=== PATIENT | female | born 1970 | race Caucasian/White ===

== ENCOUNTER → 2017-12-09 10:06 | Outpatient (CLI) | payer OTHER, SELFPAY ==
[2017-12-09 11:48] LABS: T4 Free Direct 0.93 ng/dL (0.76-1.46); Thyroid Stim Hormone (TSH) 2.07 uIU/mL (0.358-3.74)
[2017-12-10 11:13] LABS: Thyroid Peroxidase AB 13 IU/mL (0-34)
== END ==
PROVIDERS: Family Provider Family Medicine; PCP Family Medicine; Visit Provider Family Medicine
DX: Z00.01 Encounter for general adult medical examination with abnormal findings (principal); E04.9 Nontoxic goiter, unspecified
CPT/HCPCS: 36415; 84439; 84443; 86376

== ENCOUNTER → 2018-01-30 14:34 | Outpatient (CLI) | payer OTHER, SELFPAY ==
[2018-01-30 16:00] LABS: Absolute Lymphocyte Count 1.41 X10^3/ul (0.83-4.51); Absolute Neutrophil Count 2.1 X10^3/uL (2.0-7.7); Basophil# 0.03 X10^3/uL; Basophil% 0.8 % (0-1); Eosinophil# 0.12 X10^3/uL; Hematocrit 40.9 % (37-47); Hemoglobin 13.8 g/dl (12.0-15.0); Lymphocyte # 1.41 X10^3/ul (4.0); Lymphocyte % 35.5 % (19-41); Mean Corp Hgb Conc 33.7 g/gl (32-36); Mean Corpuscular Hgb 31.1 pg (27.0-32.0); Mean Corpuscular Volume 92.1 fL (81-99); Mean Platelet Vol. 8.9 fl (6.2-12.0); Monocyte# 0.32 X10^3/uL; Monocyte% 8.1 % (0-10); Neutrophil # 2.09 X10^3/uL (2.7-7.7); Neutrophil % 52.6 % (47-70); Platelet Count 352 K/mm3 (150-450); RBC Distribution Width CV 11.9 % (11.6-14.6); RBC Distribution Width SD 40.3 fl (35.1-43.9); Red Blood Count 4.44 M/mm3 (4.2-5.4)
[2018-01-30 16:03] LABS: POSITIVE COUNT NO; POSITIVE DIFFERENTIAL NO; POSITIVE MORPHOLOGY NO
[2018-01-30 18:06] LABS: ALB/GLOB Ratio 1.3 RATIO (0.9-2.4); AST(SGOT) 22 U/L (15-37); Alanine Aminotransfer ALT/SGPT 27 U/L (13-56); Albumin, Serum 4.3 g/dL (3.2-5.0); Alkaline Phosphatase 88 U/L (45-117); Anion Gap 9 (5-15); BUN 12 mg/dL (7-18); BUN/Creat Ratio 13.5 RATIO (10-20); Calcium,Total 8.6 mg/dL (8.5-10.1); Chloride 107 mmol/L (98-107); Cholesterol 183 mg/dL (200); Creatinine, Serum 0.89 mg/dL (0.55-1.02); EST Glomerular Filtration Rate 73 mL/min (>60); Est Glom Filt Rate - Afr Amer 88 mL/min (>60); Globulin 3.3 g/dL (2.2-4.2); Glucose 90 mg/dL (74-106); High Density Lipoprotein 68 mg/dL; Protein, Total 7.6 g/dL (6.4-8.2); Sodium Level 142 mmol/L (136-145); Triglycerides 163 mg/dL; Very Low Density Lipoprotein 33 mg/dL (5-40)
== END ==
PROVIDERS: Family Provider Family Medicine; PCP Family Medicine; Visit Provider Family Medicine
DX: Z01.818 Encounter for other preprocedural examination (principal); E78.1 Pure hyperglyceridemia
CPT/HCPCS: 36415; 80053; 80061; 85025

== ENCOUNTER 2018-02-20 05:54 | Day surgery (SDC) | payer OTHER, SELFPAY ==
[2018-02-20 06:19] VITALS: BP 133/89; PULSE 77; RESP 16; TEMP 37.3; O2SAT 98; BMI 31.0
--- NOTE | 2018-02-20 07:07 | EKG12_ITS ---
Test Reason : PREOP Blood Pressure : / mmHG Vent. Rate : 077 BPM Atrial Rate : 077 BPM P-R Int : 156 ms QRS Dur : 078 ms QT Int : 374 ms P-R-T Axes : 021 041 030 degrees QTc Int : 423 ms Normal sinus rhythm Confirmed by ATUL MORTENSEN, CATALINA ([id number]), photographic editor MEETA NIELSEN ([id number]) on 03/06/2018 11:39:50 AM Referred By: Chip Saini Confirmed By:CATALINA POLLARD MD
--- NOTE | 2018-02-20 07:24 | RAD_ITS ---
STUDY: X-RAY - RIGHT CALCANEUS REASON FOR EXAM: Female, 47 years old. Plantar fasciotomy. TECHNIQUE: 2 coned-down view(s) of the calcaneus were obtained intraoperatively. COMPARISON: None. FINDINGS: There is evidence of resection of the plantar spur. RAD/Calcaneus min 2 Views IMPRESSION: Resection of the plantar spur. Electronically Signed: Laron Loomis MD at 15:30 EDT Tel [phone], Service support ,
--- NOTE | 2018-02-20 07:24 | RAD_ITS ---
STUDY: X-RAY - LEFT CALCANEUS REASON FOR EXAM: Female, 47 years old. Plantar fasciotomy and plantar spur removal. TECHNIQUE: AP and lateral view(s) of the calcaneus were obtained. COMPARISON: Comparison is made with prior examination earlier in the day. FINDINGS: Status post resection of the plantar spur. RAD/Calcaneus min 2 Views IMPRESSION: Status post resection of the plantar spur. Electronically Signed: Laron Loomis MD at 15:39 EDT Tel [phone], Service support ,
--- NOTE | 2018-02-20 07:30 | TESH_PTH ---
PATIENT: RAMON RENE [place] [facility] [place][id number] AGE/SX: 47/F ROOM: RE02/20/[address]: Dr. Chip Saini DPM : 1970 BED: DIS: 02/20/2018 SPEC #: [id number] RECD: 02/20/18 10:25 STATUS: BLANCA AGUAYO #: [id number] ISAIAH: 02/20/18 07:[address]: Chip Saini DEPT: SURGICAL PATHOLOGY RECD BY: Mac Gregg ENTERED: 02/20/18 14:08 SP TYPE: TENDON OTHR DR: Dr. Tesfaye Kaiser, DO Tissues: Tendon and tendon sheath, NOS Procedures: Surgery Specimen Level III HEADER OPERATION: Resection heel spur/plantar fasciotomy, bilateral feet, peroneal PRE-OP DIAGNOSIS: Plantar fascia syndrome, calcaneal spur bilateral TISSUE SUBMITTED: Right peroneal tendon debridement tissue MICROSCOPIC DIAGNOSIS Right peroneal tendon, excision: Tendon with reactive and reparative change. AM:jeffery 02/28/18 MICROSCOPIC DESCRIPTION Slides are reviewed. GROSS DESCRIPTION Received in fixative is one container labeled with the patient's name and designated right peroneal tendon. The specimen consists of multiple irregular fragments of white-jasmine to reddish-jasmine soft tissue that in aggregate measure 6 x 4 x 2 cm. Two of the fragments resemble a tendon and are submitted in their entirety in cassette 1. Cutter Operator sections of the remainder of the tissue are submitted in cassette 2. / AM:jeffery 02/20/18 TC:5 CPT: 96169
[2018-02-20] MEDS: Cefazolin 2 GM in 0.9% Normal Saline 100 ML IV (07:31)
[2018-02-20] MEDS: Bupivacaine Mpf 0.5% 30 ML VIAL (09:17)
--- NOTE | 2018-02-20 09:28 | PCM.OPRPT ---
Report of Operation Date of Procedure: 02/20/18 - Surgeon: Chip Saini DPM Pre-Operative Diagnosis: Plantar fasciitis w/ infracalcaneal spur bilateral; peroneus brevis tendon tear right Post-Operative Diagnosis: Same Surgery/Procedure Performed:: Plantar fasciotomy with resection on infracalcaneal spur bilateral, peroneal brevis tendon debridement and repair, right Description of Surgical Findings:: Infracalcaneal spur bilateral, peroneal brevis tendinopathy w/ tear right laboratory veterinarian: Yes - Dr. Germain Type of Anesthesia:: General Specimen's removed: Debrided right peroneal brevis tendon sent to pathology Estimated Blood Loss (mL): 10mL Description of Procedure: Indications: This is a 47 year old female with chronic right and left plantar fasciitis and infracalcaneal heel pain. She also has a painful longitudinal tear of the right peroneus brevis tendon w/ tendinopathy. These have been treated with extensive conservative/nonsurgical management (orthotic therapy, rest, activity modifications, AFO bracing, anti-inflammatories, EPAT), but she continues to have pain and symptoms. This was confirmed with MRI. She continues to have pain which was really bothering her and affecting her daily activities. She has elected to undergo plantar fasciotomy with resection of the infracalcaneal spur bilateral, as well as debridement and repair of peroneus brevis. This was discussed with her in great detail, reviewed the possible benefits vs risks and potential complications. Typical post op recovery was reviewed with her. The goals and the expectations were reviewed with her in detail. The consent forms were reviewed with her in detail, and she freely signed them. No guarantees were given. All of her questions were answered. Operative Procedure: The patient was brought back into the operating room and was placed on the operating room table in the supine position. She was carefully secured to the operating room table with a safety belt around the waist. A time out was performed and the patient was properly identified and the surgical plan was confirmed. The patient received 2g of IV Cefazolin for antibiotic prophylaxis. A well padded pneumatic tourniquet was applied around the patient's left ankle and right thigh. The patient received general anesthesia per the anesthesiologist. The right and left lower extremities were scrubbed, prepped, draped in the usual aseptic fashion. The left foot was elevated for 3 minutes and the left ankle pneumatic tourniquet was inflated to 250mmHg. The infracalcaneal spur was visualized on intra operative fluoroscopy, image was saved. A skin incision was made to the medial hindfoot at the level of the plantar fascia and infracalcaneal spur, careful dissection was completed down through the subcutaneous tissue layer. A plane was created superiorly and inferiorly around the plantar fascia and the medial 50% of the plantar fascia was released via a plantar fasciotomy. The infracalcaneal spur was felt, and was carefully resected using a powered rasp. Resection of the infracalcaneal spur was confirmed using intraoperative fluoroscopy. Images pre and post infracalcaneal spur resection were saved. The site was flushed out with copious amounts of normal saline solution. The skin was reapproximated using 3-0 Nylon. The pneumatic tourniquet was deflated, and there was immediate return of warmth and perfusion to the foot and to all toes on the foot with normal temperature gradient and CFT < 2 seconds to all toes. 10mL of 0.5% Bupivacaine was given as a local block around the surgical site for post op pain control per okay by the anesthesia team. Hemostasis was achieved. A dressing was applied which consisted of Betadine soaked adaptic, 4x4 gauze, Kerlix and carmen bandage. The right foot was elevated for 3 minutes and the right thigh pneumatic tourniquet was inflated to 300mmHg. The infracalcaneal spur was visualized on intra operative fluoroscopy, image was saved. A skin incision was made to the medial hindfoot at the level of the plantar fascia and infracalcaneal spur, careful dissection was completed down through the subcutaneous tissue layer. A plane was created superiorly and inferiorly around the plantar fascia and the medial 50% of the plantar fascia was released via a plantar fasciotomy. The infracalcaneal spur was felt, and was carefully resected using a powered rasp. Resection of the infracalcaneal spur was confirmed using intraoperative fluoroscopy. Images pre and post infracalcaneal spur resection were saved. The site was flushed out with copious amounts of normal saline solution. The skin was reapproximated using 3-0 Nylon. Attention was directed to the lateral hindfoot and ankle. A curvilinear skin incision was made along the course of the peroneal tendons using a 15 scalpel blade. Careful dissection was completed through the subcutaneous tissue down to the peroneal tendon sheath, which was incised. The peroneal tendons were visualized. The peroneus longus tendon was healthy and viable. The peroneus brevis tendon was torn longitudinally at the level of the retromalleolar fibular groove extending proximally. It was flatted. There was some nonviable yellow peroneus brevis tendon present, as well as a very low lying muscle belly. The low lying muscle belly was debrided and also the nonviable yellow tendon was debrided from the site, it was sent to pathology as specimen. The peroneus brevis tendon was repair and tubularized using 2-0 Vicryl. The peroneal tendons were placed back into normal anatomic alignment. The foot and ankle were put through range of motion and they were gliding smoothly. The peroneal retinaculum and tendon sheath was repaired using 2-0 Vicryl. The subcutaneous tissue was reapproximated using 3-0 Vicryl and skin was reapproximated using 3-0 Monocryl. The incision site was painted with Cavilon and steristrips were applied across the sutured skin incision. 10mL of 0.5% Bupivacaine was given as a local block around the surgical site for post op pain control per okay by the anesthesia team. A dressing was applied which consisted of Betadine soaked adaptic, 4x4 gauze, Kerlix and carmen bandage, and then a well padded below knee posterior splint. The pneumatic tourniquet was deflated, and there was immediate return of warmth and perfusion to the foot and to all toes on the foot with normal temperature gradient and CFT < 2 seconds to all toes. The patient did receive a right lower extremity popliteal block per the anesthesia team as well. The patient tolerated the above operative procedure well at the anesthesia well with no complication. The patient was transported to the recovery room with vital signs stable and in good condition. Post operative orders were placed. Post operative instructions were reviewed with her as well as with her who was here with her today. No weightbearing to the right and left foot, keep feet elevated for at least 50 minutes of every hour, keep dressing clean, dry and intact. Prescription for Percocet 5mg/325mg was prescribed: 1-2 tabs PO q 6 hours PRN pain for pain control; as well as Lovenox 40mg subcutaneous once a day to help prevent a blood clot. Post operative xrays right and left calcaneal views were obtained and reviewed - confirmed infracalcaneal spur resection, no post operative complications. She is to follow up with me within 1 week or sooner if needed. Grafts/Implants Used: None - Complications None
--- NOTE | 2018-02-20 09:37 | RAD_ITS ---
STUDY: X-RAY - LEFT CALCANEUS REASON FOR EXAM: Female, 47 years old. Postoperative calcaneal spur removal. TECHNIQUE: AP and lateral view(s) of the calcaneus were obtained. COMPARISON: None. FINDINGS: The patient is status post plantar spur removal. Postoperative soft tissue changes. RAD/Calcaneus min 2 Views IMPRESSION: Status post plantar spur removal with postoperative soft tissue changes. Electronically Signed: Laron Loomis MD at 11:19 EDT Tel [phone], Service support ,
--- NOTE | 2018-02-20 09:39 | PCM.DC.POD ---
Discharge Diet: Light diet - advance as tolerated Discharge Activity: May Not Drive Weight Bearing Status: No weight bearing - No weightbearing right or left foot Keep extremity elevated above heart level: Left Leg - Keep feet elevated for at least 50 minutes of every hour, Right Leg Call your doctor if your incision/area has: Continuous Slow Oozing, Sudden Increased Bleeding, Foul Smelling Discharge Call your doctor if you observe: Fever of 101 or Higher, Shortness of breath, Chest pain, Increased palpitations (irregular heartbeat), Calf discomfort, Uncontrolled pain Cleanse incision/area with: Do not get Incision Wet, Keep Dressing Clean & Dry Allergies/Adverse Reactions: Allergies No Known Allergies Allergy (Verified 02/13/18 09:13) Medications to take at Discharge Loratadine 10 mg PO DAILY 02/13/18 Enoxaparin Sodium [Lovenox] 40 mg SQ DAILY #14 ml 02/20/18 Hydrocodone/Acetaminophen [Vicodin 5-300 mg Tablet] 1 - 2 tab PO Q4H PRN PRN 3 Days #20 tab 02/20/18 The following prescriptions were given: Hydrocodone/Acetaminophen [Vicodin 5-300 mg Tablet] 1 - 2 tab PO Q4H PRN PRN 3 Days #20 tab PRN Reason: Pain Enoxaparin Sodium [Lovenox] 40 mg SQ DAILY #14 ml Primary Care Physician: Tesfaye Kaiser DO [Primary Care Provider] - Please Follow Up With: Chip Saini DPM When: within 1 week, sooner if needed
[2018-02-20 09:43] VITALS: BP 126/97; BP 133/89; PULSE 105; RESP 16; TEMP 36.6; O2SAT 94
[2018-02-20 09:45] VITALS: BP 124/87; BP 133/89; PULSE 105; RESP 16; O2SAT 99
--- NOTE | 2018-02-20 09:45 | RAD_ITS ---
STUDY: X-RAY - RIGHT CALCANEUS REASON FOR EXAM: Female, 47 years old. Right calcaneal spur resection. TECHNIQUE: 3 view(s) of the calcaneus were obtained. COMPARISON: None. FINDINGS: Status post calcaneal spur resection. RAD/Calcaneus min 2 Views IMPRESSION: Status post calcaneal spur resection. Electronically Signed: Laron Loomis MD at 10:26 EDT Tel [phone], Service support ,
[2018-02-20 10:00] VITALS: BP 127/91; BP 133/89; PULSE 93; RESP 18; O2SAT 99
[2018-02-20 10:17] VITALS: BP 129/84; BP 133/89; PULSE 91; RESP 16; TEMP 36.5; O2SAT 97
[2018-02-20] MEDS: Acetaminophen 500 MG Tablet 1000 MG PO (10:41)
[2018-02-20 11:00] VITALS: BP 133/89
== END 2018-02-20 11:15 | disposition home or self-care (01) ==
LOC: SDC 05:55 → AC 05:56
PROVIDERS: Family Provider Family Medicine; PCP Family Medicine; Visit Provider Podiatrist
PROC: (CPT 28119; principal; 2018-02-20 07:15)
DX: M72.2 Plantar fascial fibromatosis (principal); R00.1 Bradycardia, unspecified; F32.9 Major depressive disorder, single episode, unspecified; E78.1 Pure hyperglyceridemia; M77.31 Calcaneal spur, right foot; M77.32 Calcaneal spur, left foot
CPT/HCPCS: 27680; 28119; 64447; 73650; 76000; 88304; 93005; J7120; J2405

== ENCOUNTER 2018-06-17 10:00 | Outpatient (RCR) | payer OTHER, SELFPAY ==
--- NOTE | 2018-04-23 09:47 | HP.PTEVAL_ITS ---
Patient's Visit Information RAMON RENE is a 47 year old F referred to Physical Therapy by Chip Saini with a diagnosis of s/p right peroneus brevis tendon debridement and repair, plantar fasciotomy. Date of Evaluation: 04/23/18 Physical Therapist: Roz Butler - Visit Plan Frequency: 3x /Week Duration: 3 Weeks Plan: Focus on ankle s/s and modalities of vaso and TENS as needed (ice) - Subjective Subjective: Chronic plantar fascititis for approx 12 years with terrible bone spurs- tried EPOC and it didn't get better. Surgery 02/20/18 Peroneal Brevis tendon debriedment and repiar, plantar fasciotomy, and heel spur resection bilateral- RIGHT. NWB for 2 weeks used w/c as primary mode of transportation- Tried to use crutches but it did not work out. Was finally able to use crutches after 3 weeks. NWB for 4 weeks then progressed through boots and WB status and is now WBAT and has transitioned out of the boot into an ankle brace. Patient reports pain is mostly soreness- uses tylenole as needed. Pain is located in the lateral malleolus and along the bottom of the foot. Worried about ankle weakness. Worst: 5//10 Agg: standing on it, being active, standing. Best: 0/10 Eases: resting, Tylenol. No Radiating pain- Numbness along the lateral incision. Sleep: not disturbed. 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 Thinks she will have partial shifts then resume when she is ready. PMHx: none Meds: Claratin. No injuries to the ankle previously. Does not wear orthotics- wears inserts from the drug store on the left. - Objective Posture: good throughout. Gait: slightly antalgic- decreased stance and toe off on the right. Edema: Figure 8: 51 cm Malleolus: 26.5 cm Mets: 22 cm. DF:5 degrees PF: 40 degrees, Inv: 40 degrees ever: 30 degrees. Flex: Gastroc: moderate. HR/TR: WNL with UE A. SLS: 3 sec but reports pain. Strength: 4+/5 throughout ankle. Palpation: tender along lateral malleolus. Observation: mild bruising along lateral malleolus. Sensation: over lateral incision distal - increases sensation at toes - Goals Goal 1:: Patient will be I with HEP and progression Goal Time Frame: 4-6 Weeks Goal 2:: Patient will ambulate >300 feet with a normalized gait pattern Goal Time Frame: 4-6 Weeks Goal 3:: Patient will SLS for 30 sec without lob Goal Time Frame: 4-6 Weeks Goal 4:: Patient will report 0/10 pain for 1 week Goal Time Frame: 4-6 Weeks - Rehabilitation Potential Physical Therapy Diagnosis: Patient presents with hypomobility- she has decreased ROM, strength and muscular endurance leading to poor balance and increased pain with ADL's. Rehabilitation Potential: Fair - Anticipated Interventions Patient/Client Instruction: Educate patient on: Benefits of Fitness Program Therapeutic Exercise to Include: Strength training, Endurance training, Balance training, Agility training, Body mechanics, Postural training, Flexibilty training, Gait and locomotor training, Dynamic Lumbar Stabilization For the Purpose of:: To improve muscle performance and motor function TENS: Yes Cryotherapy (ice pack, ice massage): Yes Thermo therapy (hot pack): Yes Ultrasound (thermal/non thermal): No Vasopneumatic device: Yes For the Purpose of:: To decrease pain, To decrease swelling/inflammation Thank you for the opportunity to evaluate your patient. For Medicare and Medicare HMO plans, please review the plan of care and approve it. It will need to be FAXED BACK to us at [phone] for Medicare purposes. Please let me know if there are questions or concerns regarding this plan of care. Physician Signature: Date:
--- NOTE | 2018-05-14 10:59 | HP.PTREVAL ---
Chip Saini, It has been my pleasure to treat RAMON RENE over the last 10 visits for s/p right peroneus brevis tendon debridement and repair, plantar fasciotomy. Please see the progress note below for an update on the physical therapy plan of care! Subjective: Patient reports that they are doing great- the bottom of the foot pain is much better-2/10 at its worst. Swelling still mild in the right. Still has concerns about balance and standing for long periods of time (ex standing in line at grocery store). Most trouble first thing in the AM- then things warm up and are better. Sees Friday and plan is May 25 for RTW- is hoping for possible half shifts- 2-3 weeks to wean her back into standing for so long. Wants to be able to run again. Objective/Function: Posture: good throughout. Gait: no deviation noted. Edema: Figure 8: 51 cm Malleolus: 26 cm Mets: 23.25 cm. DF:10 degrees PF: 50 degrees, Inv: 40 degrees ever: 30 degrees. Flex: Gastroc: moderate. HR/TR: WNL with UE A. SLS: 15 sec but has significant muscle activation. Strength: 4+/5 throughout ankle Core: fair. Palpation: tender along lateral malleolus. Sensation: over lateral incision distal- increases sensation at toes. Educated on imporatance of proper footwear for increased support in arch. Plan Plan: Continue therapy 3x a week for 4 weeks to progress higher level balance activities and return patient to previous activities including running. Goals Goal 1:: Patient will be I with HEP and progression Goal Time Frame: 4-6 Weeks Goal Progress: Progressing Goal 2:: Patient will ambulate >300 feet with a normalized gait pattern Goal Time Frame: 4-6 Weeks Goal Progress: Goal Met Goal 3:: Patient will SLS for 30 sec without lob Goal Time Frame: 4-6 Weeks Goal Progress: Progressing Goal 4:: Patient will report 0/10 pain for 1 week Goal Time Frame: 4-6 Weeks Goal Progress: Progressing Goal 5:: Patient will run on the TM for 3 minutes with normal pattern and no increase in s/s. Goal Time Frame: 4-6 Weeks Goal 6:: Patient will demo 5/5 strength in ankle Anticipated Interventions Patient/Client Instruction: Educate patient on: Benefits of Fitness Program Therapeutic Exercise to Include: Strength training, Endurance training, Balance training, Agility training, Body mechanics, Postural training, Flexibilty training, Gait and locomotor training, Dynamic Lumbar Stabilization For the Purpose of:: To improve muscle performance and motor function TENS: Yes Cryotherapy (ice pack, ice massage): Yes Thermo therapy (hot pack): Yes Ultrasound (thermal/non thermal): No Vasopneumatic device: Yes For the Purpose of:: To decrease pain, To decrease swelling/inflammation Please do not hesitate to contact me at [phone] by phone or if you have questions or concerns regarding this new plan of care! Sincerely, Roz Butler
--- NOTE | 2018-06-17 10:38 | HP.PTDCSUM ---
HP - PT D/C Summary It has been my pleasure to treat RAMON RENE under orders from Chip Saini, for the diagnosis of s/p right peroneus brevis tendon debridement and repair, plantar fasciotomy for a total of 22 visit(s). Discharge Date: Please see the following information for a summary of their discharge status. - Subjective Subjective: Patient reports that she is feeling good- she still has pain in the ankles when she works 6/10 at the worst and is only working 6 hours currently. - Pain RIGHT FOOT PAIN Pain Intensity (Out of 10): 0 RIGHT ANKLE Pain Intensity (Out of 10): 3 LEFT FOOT PAIN Pain Intensity (Out of 10): 0 - Overall Improvement % Improvement: 75 - Objective Objective/Function: Posture: good throughout. Gait: no deviation noted- presents in heels today with dress clothes DF:10 degrees PF: 50 degrees, Inv: 40 degrees ever: 30 degrees. Flex: Gastroc: mild. HR/TR: WNL with UE A. SLS: 15 sec with no significant muscle activation Strength: 5/5 throughout ankle Core: fair plus. Palpation: not tender Sensation: WNL - Goals Goal 1:: Patient will be I with HEP and progression Goal Progress: Goal Met Goal 2:: Patient will ambulate >300 feet with a normalized gait pattern Goal Progress: Goal Met Goal 3:: Patient will SLS for 30 sec without lob Goal Progress: Progressing Goal 4:: Patient will report 0/10 pain for 1 week Goal Progress: Progressing Goal 5:: Patient will run on the TM for 3 minutes with normal pattern and no increase in s/s. Goal Progress: Progressing Goal 6:: Patient will demo 5/5 strength in ankle Goal Progress: Goal Met - Plan Plan: Discharge to HEP - D/C Information If there are questions or concerns regarding this patient's physical therapy, please feel free to call me at [phone]. Thank you for the referral of this patient. Sincerely, Roz Butler
== END 2018-06-17 14:50 | disposition home or self-care (01) ==
LOC: PT 10:00
PROVIDERS: Family Provider Family Medicine; PCP Family Medicine; Visit Provider Podiatrist
DX: Z98.890 Other specified postprocedural states (principal)
CPT/HCPCS: 97016; 97110; 97161; 97164

== ENCOUNTER → 2018-08-25 15:50 | Outpatient (CLI) | payer OTHER, SELFPAY ==
[2018-08-20 09:28] VITALS: BMI 30.9
[2018-08-29 12:01] LABS: HPV Reflexed? NOT INDICATED
== END ==
PROVIDERS: Family Provider Family Medicine; PCP Family Medicine; Referring Provider Obstetrics & Gynecology; Visit Provider Obstetrics & Gynecology
DX: Z12.4 Encounter for screening for malignant neoplasm of cervix (principal)
CPT/HCPCS: 88175; G0145

== ENCOUNTER → 2018-09-11 08:39 | Outpatient (CLI) | payer OTHER, SELFPAY ==
[2018-08-20 09:28] VITALS: BMI 30.9
[2018-09-07 11:36] VITALS: BMI 30.9
--- NOTE | 2018-09-11 10:00 | MRI_ITS ---
STUDY: MRI LEFT ANKLE WITHOUT CONTRAST REASON FOR EXAM: Left lateral ankle pain since 08/24/2018, evaluate for tendon tear. TECHNIQUE: Standardized fat and water weighted pulse sequences were obtained in all 3 orthogonal planes. COMPARISON: Radiographs 02/20/2018 and MRI images 03/10/2017. FINDINGS: Normal subcutis adipose space. Normal posterior tibialis tendon. There is a type II accessory navicular. Normal flexor digitorum longus tendon. Normal flexor hallucis longus tendon. Normal peroneus longus and brevis tendons without tenosynovitis or tendon tear. Normal tibialis anterior tendon. Normal extensor hallucis longus tendon. Normal extensor digitorum longus tendons. Normal Achilles tendon and teno-osseous insertion. There are postoperative changes from plantar fascia release with scarring of the central cord (inversion recovery sagittal images 9-11). There are postoperative changes of the calcaneus from plantar enthesophyte resection with mild bone edema (inversion recovery sagittal images 11, 12). Normal intrinsic muscles of the rearfoot. Normal distal tibiofibular syndesmotic ligamentous complex. Normal lateral ligamentous complex. Normal subtalar ligaments and sinus tarsi. Normal deltoid ligamentous complexes. Normal plantar calcaneonavicular (spring) ligament. Normal tibiotalar articulation. Normal talar dome. Normal subtalar articulations. Normal talonavicular articulation. Normal calcaneocuboid articulation. Normal navicular-cuneiform articulations. MRI/Lower Ext Joint Only (Routine) IMPRESSION: Postoperative changes of the plantar fascia and plantar calcaneal enthesophyte resection. No demonstrated peroneal tendon tear. Electronically Signed: Chadd Chester MD at 15:26 EST Tel , Service support ,
== END ==
PROVIDERS: Family Provider Family Medicine; PCP Family Medicine; Referring Provider Podiatrist; Visit Provider Podiatrist
DX: S86.312A Strain of muscle(s) and tendon(s) of peroneal muscle group at lower leg level, left leg, initial encounter (principal); X58.XXXA Exposure to other specified factors, initial encounter; Y93.9 Activity, unspecified; Y92.9 Unspecified place or not applicable; Y99.9 Unspecified external cause status
CPT/HCPCS: 73721